=== PATIENT | female | born 1970 | race Caucasian/White ===

== ENCOUNTER 2020-02-27 09:11 | Outpatient (CLI) | payer OTHER, SELFPAY ==
--- NOTE | 2020-02-27 09:19 | CT_ITS ---
WS: [id number] CT ABDOMEN CONTRAST TECHNIQUE: Contrast enhanced CT of the abdomen with coronal and sagittal reformatted images. CLINICAL INFORMATION: HEPATOMEGALY COMPARISON: CT 4 and 2005 DLP: 828.[address] scans at [facility] use at least one of these dose optimization techniques: automat ed exposure control; mA and/or kV adjustment per patient size (includes targeted exams where dose is matched to clinical indication); or iterative reconstruction. FINDINGS: Hepatomegaly. Heterogeneously enhancing lobulated mass in the left hepatic lobe. This has enlarged si gnificantly since 2008 and today measures 12.2 x 11.4 x 12.6 cm. Mainly peripheral enhancement. Conchis l veins and splenic vein are patent. Splenic granulomas. Central low-attenuation. Cholelithiasis. Calcified granulomas left lower lobe. Lung bases are well aerated. Cholelithiasis. No rmal GE junction. Adrenal glands are normal. Peripelvic renal cysts left greater than right. Normal p ancreas. Adrenal glands are normal. Calyceal tip calculi. Normal caliber abdominal aorta. Aortic calc ification. Prominent left periaortic lymph node measuring 9 mm. Shotty periaortic lymph nodes. Proxim al ureters are normal. Fat-containing umbilical hernia. CT/CT abdomen w con* 12801 IMPRESSION: 1. Marked enlargement of the heterogeneous lobulated enhancing mass in left he patic lobe today measuring 12.2 x 11.4 x 12.6 cm. Differential considerations i nclude giant cavernous hemangioma or focal nodular hyperplasia. This can be fur ther evaluated with contrast-enhanced CT with triphasic liver protocol 2. Cholelithiasis. 3. Slightly prominent left paraaortic lymph node measuring 9 mm nonspecific bu t likely reactive. 4. Bilateral peripelvic renal cysts. No hydronephrosis. 5. Fat-containing umbilical hernia.
[2020-02-27] MEDS: iohexol 300 mg/mL 100 mL Btl IV (09:30)
== END 2020-02-27 09:12 | disposition home or self-care (01) ==
LOC: RADWPI 09:17
PROVIDERS: PCP Family Medicine; Visit Provider Family Medicine
DX: R16.0 Hepatomegaly, not elsewhere classified (principal); K42.9 Umbilical hernia without obstruction or gangrene; Q61.02 Congenital multiple renal cysts; K80.20 Calculus of gallbladder without cholecystitis without obstruction
CPT/HCPCS: 74160; Q9967

== ENCOUNTER 2020-02-28 13:51 | Outpatient (CLI) | payer OTHER, SELFPAY ==
--- NOTE | 2020-02-28 17:05 | ONC CON_ITS ---
Dr. Krishna New Patient Note Patient: Jazmin Myers Unit #: [id number]: 1970 Dicatated By: uGnnar Krishna M.D.Date of Visit: Feb 28, 2020 Onc MED New Patient/Consult Referring Physician: Dr. SIMIN GLOVER M.D. [facility] Chief Complaint: Anemia. History of Present Illness: This is a 45 year-old woman with iron deficiency anemia. I had seen her initially in October 2015. She had been seen at the [facility] the preceding month with complaints of severe fatigue/exhaustion. She gave a history of being chronically anemic. Her CBC at that time did show that she was significantly anemic with hemoglobin 7.4 g and hematocrit 25.9%. The red cell indices were hypochromic/microcytic with MCV 62 and MCH 17. The white blood cell count was normal 9600. Platelet count was mildly elevated at 461,000. The serum iron was low at 14 mcg/dL with transferrin saturation 2.7%. As she had previously been intolerant of oral iron, she was given parenteral iron replacement with 2 infusions of Injectafer, which she tolerated well. She failed to return for follow-up. Her medical history is also significant for a hospital admission for bilateral pulmonary emboli in March 2015. She was treated with apixaban. Her other medical illnesses include hypertension, degenerative arthritis, fibromyalgia, chronic headache, and anxiety/depression. She also has been followed for a cavernous hemangioma of the liver. She has a history of smoking 1/2 pack of cigarettes daily. She is seen at the request of Dr. Glover in regard to recurrent anemia. Her laboratory studies from 02/14/2020 included CBC showing hemoglobin 8.6 g with hematocrit 30.8%. The red cell indices were hypochromic/microcytic with MCV 64 and MCH 17. The white blood cell count was 10,500 and the platelet count was 380,000. The serum iron studies showed low transferrin saturation at 4% and the ferritin was low at 4 ng/mL, consistent with iron deficiency. Her comprehensive metabolic profile showed normal renal function with BUN 9 and creatinine 0.64 mg/dL. The bilirubin was normal at 0.3 mg/dL and the liver enzymes were normal. Her TSH was normal at 2.73 mIU/L. She complains that her energy is very low. She says she is sleeping all the time. She has virtually no activity. ECOG score is 3. She has not had good appetite, she has gained weight. She does not have fever. She does report having hot flashes and sweating. She is still having regular menstrual periods, and they are heavy. She has shortness of breath with activity. She does not complain of cough and she has not been having chest pain. She has nausea least every couple of days and she has been having acid reflux. She also reports having constipation. She has not been aware of any blood in the stool. Bladder function has been okay. She has pain in her hands and feet and she also has numbness/tingling, more in the hands. She has frequent headaches. She has been taking ibuprofen at least once a day. She has ongoing problems with anxiety and depression. Past Medical History: Her medical history includes anxiety/depression, cavernous hemangioma of the liver, chronic headache, degenerative arthritis, fibromyalgia, hypertension, and pulmonary emboli in 2016. Past Surgical History: Her surgical/procedural history includes section x 3 and tubal ligation. Medications: Effexor XR 1 Tablet (of 225 mg) Capsule SR 24 HR Oral daily, hydrOXYzine HCl 1 (50 mg) Tablet Oral four times a day PRN Allergies: Prazosin HCl Social History: Ms. Myers is . She is unemployed. She has a history of smoking 1/2 pack of cigarettes daily for 26 years. She does not drink alcohol. Family History: Father at age 54 with diabetes and cirrhosis. Mother at age 64 with complications related to diabetes and C. difficile colitis. A sister also has diabetes. Her maternal grandmother had breast cancer. Review Of Symptoms: Constitutional - She has very poor energy and she is sleeping all the time. She has virtually no activity. Appetite has not been good, but she has gained weight. She has not had fever. She has hot flashes and sweating. ECOG score is 3, Eyes - She reports that her vision is worse, but she did see her coal grader and she was told her eyes were okay, ENMT - No hearing loss or tinnitus. No sinus congestion/drainage. No mouth sores. No sore throat or difficulty swallowing, Hematologic/Lymphatic - No abnormal bruising or bleeding, Respiratory - She has shortness of breath with activity. No cough. No pleuritic pain or hemoptysis, Cardiovascular - No angina pain. No palpitations, Gastrointestinal - She has nausea and she has been having acid reflux. She has constipation. No blood in the stool or black stools, Genitourinary (F) - No dysuria or hematuria. No urinary frequency. No urgency or incontinence, Musculoskeletal - She has pain in her hands and feet, Integumentary - She sometimes has bumps on her skin, apparently related to anxiety, Neurologic - She has frequent headaches. She sometimes has dizziness. She has numbness, affecting her hands more than her feet. No other focal neurologic symptoms, Psychiatric - She has anxiety and depression. She sometimes has difficulty sleeping at night. Vital Signs: Performed on Feb 28, 2020 15:03: 6, 3, 42.32 (HIGH), 2.03 sq.m, 62.00 in, 98 %, 86 /min, 20 /min, 160/88 mm(hg) (HIGH), 98.0 F (LOW), and 231.4 lbs (LOW). Physical Examination: Constitutional - She does not appear acutely ill, Eyes - Sclerae nonicteric. Conjunctivae clear, ENMT - No lesions noted in the oral cavity, Hematologic/Lymphatic - No cervical, clavicular, or axillary adenopathy, Respiratory - Lungs are clear with good air movement bilaterally, Cardiovascular - Heart rhythm is regular. There is no murmur, gallop, or rub noted, Abdomen - Soft. Liver and spleen are not enlarged. There is no abdominal mass or ascites noted and there is no inguinal adenopathy, Extremities - No edema. Pedal pulses are palpable bilaterally, Integumentary - No rashes. No suspicious skin lesions noted, Neurologic - No focal neurologic deficits noted. Lab/Imaging: Contrast-enhanced CT abdomen on 02/27/2020 showed heterogeneously enhancing lobulated mass in the left hepatic lobe measuring 12.2 x 11.4 x 12.6 cm. It was noted to be predominantly peripheral enhancement. It had enlarged significantly compared to her previous CT in 2008. A prominent left periaortic lymph node measured 9 mm. The appearance was nonspecific but most likely reactive. There were bilateral peripelvic renal cysts, and there was evidence of cholelithiasis. Problem List: 1. Iron deficiency anemia. It is uncertain to what extent this may be due to blood loss (GI or menstrual) versus inadequate oral iron absorption. 2. She is being followed for suspected cavernous hemangioma of the liver. 3. She has a history of hypertension, currently not requiring medication. 4. She has a history of bilateral pulmonary emboli, currently not on anticoagulation. 5. Degenerative arthritis and fibromyalgia. 6. Anxiety/depression. Problems Addressed with this Encounter and Plan: 1. Iron deficiency anemia. It is uncertain to what extent this may be due to blood loss (GI or menstrual) versus inadequate oral iron absorption. At this point she is significantly anemic again and she is very symptomatic with it. As she has previously been intolerant of oral iron, she will be scheduled to come in for parenteral iron replacement with Injectafer, subject to verification of insurance coverage. In the meantime, I also will have her bring in a stool sample for IFOB. 2. She has acid reflux symptoms. She will be given a prescription for pantoprazole 40 mg daily. She also is advised to avoid nonsteroidal anti-inflammatory medication. 3. She is being followed for suspected cavernous hemangioma of the liver. Her CT abdomen yesterday showed marked enlargement of the enhancing left hepatic lobe mass compared to previous studies from 2005 and 2008. I will review the CT scan with the radiologist, and she will then be scheduled for further evaluation as indicated. Signed By: Gunnar Krishna M.D. <<Signature on File>>
== END 2020-02-28 13:52 | disposition home or self-care (01) ==
LOC: ONCMED 13:52
PROVIDERS: PCP Family Medicine; Visit Provider Internal Medicine Medical Oncology
DX: D50.9 Iron deficiency anemia, unspecified (principal); R93.2 Abnormal findings on diagnostic imaging of liver and biliary tract; K21.9 Gastro-esophageal reflux disease without esophagitis; I10 Essential (primary) hypertension; M19.90 Unspecified osteoarthritis, unspecified site; M79.7 Fibromyalgia; F41.8 Other specified anxiety disorders; Z86.711 Personal history of pulmonary embolism
CPT/HCPCS: 99204

== ENCOUNTER 2020-03-06 06:27 | Outpatient (CLI) | payer OTHER, SELFPAY ==
[2020-03-06] MEDS: ferric carboxy (IVPB) 750 MG in sodium chloride 0.9% (100 ml) 100 ML 460 MG IV (14:47)
== END 2020-03-06 06:28 | disposition home or self-care (01) ==
LOC: ONCMED 06:28
PROVIDERS: PCP Family Medicine; Visit Provider Internal Medicine Medical Oncology
DX: D50.8 Other iron deficiency anemias (principal)
CPT/HCPCS: 96365; J1439

== ENCOUNTER 2020-03-13 06:40 | Outpatient (CLI) | payer OTHER, SELFPAY ==
[2020-03-13] MEDS: ferric carboxy (IVPB) 750 MG in sodium chloride 0.9% (100 ml) 100 ML 345 MG IV (14:40)
== END 2020-03-13 06:41 | disposition home or self-care (01) ==
LOC: ONCMED 06:42
PROVIDERS: PCP Family Medicine; Visit Provider Internal Medicine Medical Oncology
DX: D50.9 Iron deficiency anemia, unspecified (principal)
CPT/HCPCS: 96365; J1439

== ENCOUNTER 2020-04-08 08:48 | Outpatient (CLI) | payer OTHER, SELFPAY ==
[2020-04-08 10:10] LABS: Alanine Aminotransferase 17 U/L (0-33); Albumin Level 3.7 g/dL (3.5-5.2); Alkaline Phosphatase 62 IU/L (35-105); Anion Gap 12.8 (5-19); Aspartate Amino Transferase 14 U/L (0-32); Blood Urea Nitrogen 10 mg/dL (6-20); Calcium 8.5 mg/dL (8.5-10.5); Carbon Dioxide 25 mmol/L (22-29); Chloride 102 mmol/L (98-107); Ferritin 124 ng/mL (15-150); Globulin 2.9 g/dL (1.3-4.6); Glomerular Filtration Rate 105.8 mL/min (90-130); Glucose 104 mg/dL (65-115); Iron 46 ug/dL (37-145); Osmolality Calculated 281 mOsm/kg (285-295); Percent Saturation 16.7 % (20-50); Potassium 3.8 mmol/L (3.5-5.1); Sodium 136 mmol/L (136-145); Total Bilirubin 0.2 mg/dL (0.15-1.2); Total Iron Binding Capacity 275 mcg/dl; Total Protein 6.6 g/dL (6.6-8.7); Unsaturated Iron Binding 229 ug/dL (112-347)
[2020-04-08 10:51] LABS: Basophils # 0.1 10^3/uL (0.0-0.1); Basophils % 1.2 %; Eosinophils # 0.4 10^3/uL (0.0-0.8); Eosinophils % 4.6 %; Hematocrit 37.2 % (37.0-47.0); Hemoglobin 11.7 g/dL (11.5-15.3); Lymphocytes % 36.5 %; Mean Corpuscular HGB Conc 31.5 g/dL (30.0-36.0); Mean Corpuscular Hemoglobin 25.9 pg (28.0-34.0); Mean Corpuscular Volume 82.3 fL (81-99); Mean Platelet Volume 9.5 fL (7.4-10.4); Monocytes # 0.4 10^3/uL (0.2-0.9); Monocytes % 5.2 %; Neutrophils # 4.21 10^3/uL (1.8-7.7); Nucleated Red Blood Cells % 0 %; Platelet Count 295 10^3/cmm (130-400); Red Blood Count 4.52 10^6/uL (4.1-5.3); White Blood Count 8.1 10^3/uL (4.0-10.0)
[2020-04-08 11:03] LABS: Folate Level 4.7 ng/mL (4.8-37.3)
--- NOTE | 2020-04-09 06:39 | ONC FU_ITS ---
Dr. Krishna Patient Follow-Up Note Patient: Jazmin Myers Unit #: [id number]: 1970 Dicatated By: Gunnar Krishna M.D.Date of Visit:Apr 08, 2020 Onc Med Follow-up/Prog Note Chief Complaint: Anemia. History of Present Illness: This is a 49 year-old woman with iron deficiency anemia. I had seen her initially in October 2015. She had been seen at the [facility] the preceding month with complaints of severe fatigue/exhaustion. She gave a history of being chronically anemic. Her CBC at that time did show that she was significantly anemic with hemoglobin 7.4 g and hematocrit 25.9%. The red cell indices were hypochromic/microcytic with MCV 62 and MCH 17. The white blood cell count was normal 9600. Platelet count was mildly elevated at 461,000. The serum iron was low at 14 mcg/dL with transferrin saturation 2.7%. As she had previously been intolerant of oral iron, she was given parenteral iron replacement with 2 infusions of Injectafer, which she tolerated well. She failed to return for follow-up. Her medical history is also significant for a hospital admission for bilateral pulmonary emboli in March 2015. She was treated with apixaban. Her other medical illnesses include hypertension, degenerative arthritis, fibromyalgia, chronic headache, and anxiety/depression. She also has been followed for a cavernous hemangioma of the liver. She has a history of smoking 1/2 pack of cigarettes daily. I had seen her again in February 2020 in regard to recurrent anemia. Her laboratory studies from 02/14/2020 included CBC showing hemoglobin 8.6 g with hematocrit 30.8%. The red cell indices were hypochromic/microcytic with MCV 64 and MCH 17. The white blood cell count was 10,500 and the platelet count was 380,000. The serum iron studies showed low transferrin saturation at 4% and the ferritin was low at 4 ng/mL, consistent with iron deficiency. Her comprehensive metabolic profile showed normal renal function with BUN 9 and creatinine 0.64 mg/dL. The bilirubin was normal at 0.3 mg/dL and the liver enzymes were normal. Her TSH was normal at 2.73 mIU/L. As she had a history of intolerance to oral iron she was given parenteral iron replacement with 2 infusions of Injectafer, which she tolerated well. She is seen now for a follow-up visit. She says her energy has improved following the iron infusions, but she still feels worn out. Her activity remains very limited, but much of that is due to generalized pain. She says she is sore everywhere, and lately the right shoulder and both knees. She mostly sits in bed. Her appetite is not very good. Her weight is down a few pounds. She does not have fever. She sometimes has hot flashes. She had sore throat last week. She says it feels like she cannot get enough oxygen. She does not complain of cough. She sometimes has chest pain, mainly sharp pain in her right chest. She reports having nausea pretty often and she also has heartburn. She has chronic constipation. She has been having pain in the lower abdomen on either the right side or the left side. Bladder function remains adequate, though she does have some stress incontinence. She has daily headaches. She also complains of dizziness. She has numbness in her left arm. She reports having depression despite taking 300 mg of venlafaxine daily. She also complains that she is getting forgetful. Medications: Effexor XR 1 Tablet (of 225 mg) Capsule SR 24 HR Oral daily, hydrOXYzine HCl 1 (50 mg) Tablet Oral four times a day PRN Allergies: Prazosin HCl Vital Signs: Performed on Apr 08, 2020 10:41 Height - 62.00 in Weight - 227.2 lbs (LOW) BSA - 2.02 sq.m BMI - 41.56 (HIGH) Temperature - 98.8 F Pulse - 86 /min Respiration - 20 /min BP - 138/84 mm(hg) O2 Sat - 98 % Pain - 0 Fatigue - 10 Physical Examination: Constitutional - She looks pretty good generally, Eyes - Sclerae nonicteric. Conjunctivae clear, ENMT - No lesions noted in the oral cavity, Hematologic/Lymphatic - No cervical, clavicular, or axillary adenopathy, Respiratory - Lungs are clear with good air movement bilaterally, Cardiovascular - Heart rhythm is regular. There is no murmur, gallop, or rub noted, Abdomen - Mildly distended. Liver and spleen are not enlarged. There is no abdominal mass or ascites noted and there is no inguinal adenopathy, Extremities - No edema, Neurologic - No focal neurologic deficits noted. Lab/Imaging: Test performed on Apr 08, 2020 09:10 Ferritin 124 ng/mL Folate, Serum 4.7 ng/mL Iron 46 mcg/dL Sodium 136 mmol/L Iron Binding Capacity (TIBC) 275 mcg/dl Potassium 3.8 mmol/L % Iron Saturation 16.7 % Chloride 102 mmol/L CO2 25 mmol/L UIBC 229 mcg/dL Anion Gap 12.8 BUN 10 mg/dL Creatinine 0.6 mg/dL Cr Clearance (Est) 182.50 mL/min eGFR 105.8 mL/min Glucose 104 mg/dL Osmolality - Calculated 281 mOsm/kg Calcium 8.5 mg/dL Protein, Total 6.6 g/dL Albumin 3.7 g/dL Globulin 2.9 g/dL Bilirubin, Total 0.2 mg/dL ALT (SGPT) 17 U/L AST (SGOT) 14 U/L Alkaline Phosphatase 62 IU/L WBC 8.1 10 3/uL RBC 4.52 10 6/uL HGB 11.7 g/dL HCT 37.2 % MCV 82.3 fL MCH 25.9 pg MCHC 31.5 g/dL Platelet Count 295 10 3/cmm MPV 9.5 fL Neutrophils 4.21 10 3/uL Lymphocytes 3.0 10 3/uL Monocytes 0.4 10 3/uL Eosinophils 0.4 10 3/uL Basophils 0.1 10 3/uL Neutrophil % 52.0 % Lymphocyte % 36.5 % Monocyte % 5.2 % Eosinophil % 4.6 % Basophils % 1.2 % NRBC % 0 % Problem List: 1. Iron deficiency anemia. It is uncertain to what extent this may be due to blood loss (GI or menstrual) versus inadequate oral iron absorption. 2. She is being followed for suspected cavernous hemangioma of the liver. 3. She has a history of hypertension, currently not requiring medication. 4. She has a history of bilateral pulmonary emboli, currently not on anticoagulation. 5. Degenerative arthritis and fibromyalgia. 6. Anxiety/depression. Problems Addressed with this Encounter and Plan: 1. Iron deficiency anemia. It is uncertain to what extent this may be due to blood loss (GI or menstrual) versus inadequate oral iron absorption. Due to history of intolerance to oral iron, she was given parenteral iron replacement with 2 infusions of Injectafer, which she tolerated well. She has had a very good objective response, though she remains slightly anemic and her transferrin saturation is still low at 16%. As such, she will be given 1 additional infusion of Injectafer. She will be scheduled for a follow-up in 3 months. In the meantime, she is reminded to bring in a stool sample for Hemoccult testing. 2. She has acid reflux symptoms. She has had some improvement with pantoprazole, though she continues to complain of nausea and heartburn. She also has chronic constipation. 3. She has been followed for suspected cavernous hemangioma of the liver. I reviewed the February abdominal CT scan with the radiologist, and the lesion has enlarged significantly compared to the 2008 study, now occupying the majority of the lower half of the liver. As such, I will try and arrange for her to be seen by a hepatobiliary surgeon. Signed By: Gunnar Krishna M.D. <<Signature on File>>
[2020-04-09 10:50] LABS: Vitamin B12 289 pg/mL (232-1245)
== END 2020-04-08 08:49 | disposition home or self-care (01) ==
PROVIDERS: PCP Family Medicine; Visit Provider Internal Medicine Medical Oncology
DX: D50.9 Iron deficiency anemia, unspecified (principal); K21.9 Gastro-esophageal reflux disease without esophagitis; K59.09 Other constipation; K76.9 Liver disease, unspecified
CPT/HCPCS: 36415; 80053; 82607; 82728; 82746; 83540; 83550; 85025; 99214

== ENCOUNTER 2020-04-23 06:28 | Outpatient (CLI) | payer OTHER, SELFPAY ==
[2020-04-23] MEDS: ferric carboxy (IVPB) 750 MG in sodium chloride 0.9% (100 ml) 100 ML 460 MG IV (14:53)
== END 2020-04-23 06:29 | disposition home or self-care (01) ==
LOC: ONCMED 06:28
PROVIDERS: PCP Family Medicine; Visit Provider Internal Medicine Medical Oncology
DX: D50.9 Iron deficiency anemia, unspecified (principal)
CPT/HCPCS: 80307; 96365; J1439

== ENCOUNTER 2020-06-09 11:35 | Outpatient (CLI) | payer OTHER, SELFPAY ==
[2020-06-09 12:19] LABS: Basophils # 0.1 10^3/uL (0.0-0.1); Eosinophils # 0.3 10^3/uL (0.0-0.8); Eosinophils % 2.8 %; Hematocrit 40.5 % (37.0-47.0); Hemoglobin 13.2 g/dL (11.5-15.3); Lymphocytes # 3.3 10^3/uL (0.8-4.8); Lymphocytes % 32.4 %; Mean Corpuscular HGB Conc 32.6 g/dL (30.0-36.0); Mean Corpuscular Hemoglobin 30.3 pg (28.0-34.0); Mean Corpuscular Volume 92.9 fL (81-99); Monocytes # 0.5 10^3/uL (0.2-0.9); Monocytes % 5.3 %; Neutrophils # 5.89 10^3/uL (1.8-7.7); Neutrophils % 58.2 %; Nucleated Red Blood Cells % 0 %; Platelet Count 379 10^3/cmm (130-400); Red Blood Count 4.36 10^6/uL (4.1-5.3); Red Cell Distribution Width 14.4 % (12.1-15.1); White Blood Count 10.1 10^3/uL (4.0-10.0)
[2020-06-09 12:30] LABS: Ferritin 39 ng/mL (15-150); Iron 62 ug/dL (37-145); Total Iron Binding Capacity 295 mcg/dl; Unsaturated Iron Binding 233 ug/dL (112-347)
--- NOTE | 2020-06-22 23:46 | ONC FU_ITS ---
[facility] Patient Note Patient: Jazmin Myers Unit #: [id number]: 1970 Dictated By: James ArredondoDate of Visit: June 09, 2020 Onc MED Follow-Up/Prog Note Chief Complaint: Anemia. History of Present Illness: Mrs Myers is a 49 year-old woman with iron deficiency anemia. Dr Krishna had seen her initially in October 2015. She had been seen at the [facility] the preceding month with complaints of severe fatigue/exhaustion. She gave a history of being chronically anemic. Her CBC at that time did show that she was significantly anemic with hemoglobin 7.4 g and hematocrit 25.9%. The red cell indices were hypochromic/microcytic with MCV 62 and MCH 17. The white blood cell count was normal 9600. Platelet count was mildly elevated at 461,000. The serum iron was low at 14 mcg/dL with transferrin saturation 2.7%. As she had previously been intolerant of oral iron, she was given parenteral iron replacement with 2 infusions of Injectafer, which she tolerated well. She failed to return for follow-up. Her medical history is also significant for a hospital admission for bilateral pulmonary emboli in March 2015. She was treated with apixaban. Her other medical illnesses include hypertension, degenerative arthritis, fibromyalgia, chronic headache, and anxiety/depression. She also has been followed for a cavernous hemangioma of the liver. She has a history of smoking 1/[address] Krishna had seen her again in February 2020 in regard to recurrent anemia. Her laboratory studies from 02/14/2020 included CBC showing hemoglobin 8.6 g with hematocrit 30.8%. The red cell indices were hypochromic/microcytic with MCV 64 and MCH 17. The white blood cell count was 10,500 and the platelet count was 380,000. The serum iron studies showed low transferrin saturation at 4% and the ferritin was low at 4 ng/mL, consistent with iron deficiency. Her comprehensive metabolic profile showed normal renal function with BUN 9 and creatinine 0.64 mg/dL. The bilirubin was normal at 0.3 mg/dL and the liver enzymes were normal. Her TSH was normal at 2.73 mIU/L. As she had a history of intolerance to oral iron, she was given parenteral iron replacement with 2 infusions of Injectafer, which she tolerated well. Mrs sulma Myers is here today for followup. Her last dose of Injectafer was April 23, 2020. Her hemoglobin at that time was 11.7 but her iron saturation on April 08, 2020 was 16.7% with a ferritin of 124 and iron level of 46. She states overall she feels that she is doing pretty good. She reports that she is scheduled to see Dr. Davenport in [place] on June 26, 2020 for the cavernous hemangioma of the liver. She denies any new concerns. She denies any new pain. She is had no fever or chills. She states her energy is still about the same. Maybe a little better than her last visit. She states her appetite is fair. She is able to do her ADLs without assistance. She denies any new shortness of breath orthopnea. She denies any chest pain or palpitations. She denies any hemoptysis. She states she has not had any new abdominal pain. She denies diarrhea or constipation. She has chronic joint pain due to the degenerative arthritis and fibromyalgia but states is no worse than normal. Her anxiety and depression are about the same as her normal . Her ECOG is 2. Past Medical History: Anxiety/depression Cavernous hemangioma of the liver Chronic headache Degenerative arthritis Fibromyalgia Hypertension Pulmonary emboli in 2016 Past Surgical History: section x 3 Tubal ligation Allergies: Prazosin HCl Medications: Effexor XR 1 Tablet (of 225 mg) Capsule SR 24 HR Oral daily hydrOXYzine HCl 1 (50 mg) Tablet Oral four times a day PRN Family History: Ms. Myers's mother at age 64: heart disease, and diabetes. Ms. Myers's father at age 54: cirrhosis, and diabetes. Ms. Myers has 1 brother who is alive: hypertension, and thyroid disorder. She has 1 sister who is alive: diabetes, and fibromyalgia. Father at age 54 with diabetes and cirrhosis. Mother at age 64 with complications related to diabetes and C. difficile colitis. A sister also has diabetes. Her maternal grandmother had breast cancer. Social History: Ms. Myers is and she is unemployed. She is a daily smoker who has smoked 0.5 packs/day for 27 years. She has no history of drinking. She has a history of smoking 1/2 pack of cigarettes daily for 26 years. She does not drink alcohol. Review Of Symptoms: <See Above> Vital Signs: Performed on June 09, 2020 13:24 Height - 62.00 in Weight - 230.8 lbs (HIGH) BSA - 2.03 sq.m BMI - 42.21 (HIGH) Temperature - 96.5 F (LOW) Pulse - 102 /min (HIGH) Respiration - 17 /min BP - 138/85 mm(hg) O2 Sat - 95 % (LOW) Pain - 0,2 - Ambulatory/capable of all self-care, unable to perform any work activities. Up and about more than 50% of waking hours. (ECOG) Physical Examination: Constitutional Alert, oriented, no acute distress. Skin pink, warm and dry. Head Normocephalic; atraumatic. Eyes Conjunctivae and sclerae are clear and without icterus. Pupils are reactive and equal. Respiratory Lungs are clear to auscultation without rhonchi or wheezing. Cardiovascular Regular rate and rhythm of heart without murmurs,clicks, gallops or rubs. Breasts Abdomen Non-tender, non-distended, no masses or ascites. Good bowel sounds noted in all quads. No guarding or rebound tenderness. No pulsatile masses. Back/Spine Non-tender to palpation. Extremities No visible deformities, no cyanosis, clubbing or edema. Musculoskeletal No tenderness or swelling, normal range of motion without obvious weakness. Integumentary No rashes or lesions. Neurologic No sensory or motor deficits, normal cerebellar function, normal gait. Psychiatric Alert and oriented times three. Coherent speech. Verbalizes understanding of our discussions today. Laboratory:Test performed on June 09, 2020 11:42 Ferritin 39 ng/mL Iron 62 mcg/dL Iron Binding Capacity (TIBC) 295 mcg/dl % Iron Saturation 21.0 % UIBC 233 mcg/dL WBC 10.1 10 3/uL RBC 4.36 10 6/uL HGB 13.2 g/dL HCT 40.5 % MCV 92.9 fL MCH 30.3 pg MCHC 32.6 g/dL RDW 14.4 % Platelet Count 379 10 3/cmm MPV 9.0 fL Neutrophils 5.89 10 3/uL Lymphocytes 3.3 10 3/uL Monocytes 0.5 10 3/uL Eosinophils 0.3 10 3/uL Basophils 0.1 10 3/uL Neutrophil % 58.2 % Lymphocyte % 32.4 % Monocyte % 5.3 % Eosinophil % 2.8 % Basophils % 1.0 % NRBC % 0 % Test performed on Apr 08, 2020 09:10 Folate, Serum 4.7 ng/mL Sodium 136 mmol/L Vitamin B12 289 pg/mL Potassium 3.8 mmol/L Chloride 102 mmol/L CO2 25 mmol/L Anion Gap 12.8 BUN 10 mg/dL Creatinine 0.6 mg/dL Cr Clearance (Est) 182.50 mL/min eGFR 105.8 mL/min Glucose 104 mg/dL Osmolality - Calculated 281 mOsm/kg Calcium 8.5 mg/dL Protein, Total 6.6 g/dL Albumin 3.7 g/dL Globulin 2.9 g/dL Bilirubin, Total 0.2 mg/dL ALT (SGPT) 17 U/L AST (SGOT) 14 U/L Alkaline Phosphatase 62 IU/L Impression: 1. Iron deficiency anemia. It is uncertain to what extent this may be due to blood loss (GI or menstrual) versus inadequate oral iron absorption. 2. She is being followed for suspected cavernous hemangioma of the liver. 3. She has a history of hypertension, currently not requiring medication. 4. She has a history of bilateral pulmonary emboli, currently not on anticoagulation. 5. Degenerative arthritis and fibromyalgia. 6. Anxiety/depression. Plan/Problems Addressed at this Visit: 1. Iron deficiency anemia. It is uncertain to what extent this may be due to blood loss (GI or menstrual) versus inadequate oral iron absorption. Due to history of intolerance to oral iron, she was given parenteral iron replacement with 2 infusions of Injectafer, which she tolerated well. Her last dose of Injectafer was on 04/23/2020 at which times she received just one dose. 2. She has acid reflux symptoms. GERD symptoms A. Continue pantoprazole she may increase to twice daily. B. She may supplement with Tums/Rolaids as needed. Her calcium level today is 8.5. 3. Chronic constipation A. She will continue with current stool regimen of stool softeners and laxative as needed. This is currently working well for her. 4. Suspected cavernous hemangioma of the liver-Per February [address] CT. A. She has been referred to Dr. Davenport in [place] per Dr. Krishna. B. Mrs. Myers reports that she has an appointment with Dr. Davenport on June 26, 2020. 5. Mrs. Myers was identified as a fall risk per her fall risk questionnaire today. A. She will referred to physical therapy for evaluation of fall risk. 6. Chronic anxiety depression. A. Currently controlled on current medications???Effexor XR 225 mg daily. 7. Follow-up plan A. We will plan to see her back in 3 months with CBC CMP and iron studies to include ferritin and TIBC. B. Mrs. Myers was encouraged to call us in interim if questions or problems arise. C. We will be glad to see her back after her appoint with Dr. Davenport as warranted. D. It is noted that her last mammogram (found in [facility] ) was a bilateral mammogram on September 01, 2016 which was reported as benign. E. I do not find any records of stool for occult blood cards as requested per Dr. Krishna at his last visit. F. She did have abdominal CT with contrast on February 27, 2020 which reported the hepatomegaly and cholelithiasis and a fat-containing umbilical hernia. I do not find any record of a colonoscopy with in [facility]???old or new. Signed By: James Arredondo-, [facility] Gunnar Krishna MD <<Signature on File>>
== END 2020-06-09 11:36 | disposition home or self-care (01) ==
PROVIDERS: PCP Family Medicine; Visit Provider Nurse Practitioner
DX: D50.9 Iron deficiency anemia, unspecified (principal); F41.9 Anxiety disorder, unspecified; F32.9 Major depressive disorder, single episode, unspecified; G43.919 Migraine, unspecified, intractable, without status migrainosus; M79.7 Fibromyalgia; I10 Essential (primary) hypertension; Z79.899 Other long term (current) drug therapy
CPT/HCPCS: 36415; 82728; 83540; 83550; 85025; 99214

== ENCOUNTER 2020-12-04 12:56 | Outpatient (CLI) | payer MEDICAID, SELFPAY ==
[2020-12-04 13:32] LABS: Basophils # 0.1 10^3/uL (0.0-0.1); Basophils % 0.9 %; Eosinophils # 0.3 10^3/uL (0.0-0.8); Eosinophils % 2.1 %; Hematocrit 36.1 % (37.0-47.0); Hemoglobin 10.7 g/dL (11.5-15.3); Lymphocytes # 2.9 10^3/uL (0.8-4.8); Lymphocytes % 24.1 %; Mean Corpuscular HGB Conc 29.6 g/dL (30.0-36.0); Mean Corpuscular Hemoglobin 22.4 pg (28.0-34.0); Mean Corpuscular Volume 75.7 fl (81-99); Mean Platelet Volume 9.7 fL (7.4-10.4); Monocytes # 0.7 10^3/uL (0.2-0.9); Monocytes % 5.7 %; Neutrophils % 66.7 %; Nucleated Red Blood Cells % 0 %; Platelet Count 293 10^3/cmm (130-400); Red Blood Count 4.77 10^6/uL (4.1-5.3); Red Cell Distribution Width 19.4 % (12.1-15.1); White Blood Count 11.8 10^3/uL (4.0-10.0)
[2020-12-04 13:43] LABS: Alanine Aminotransferase 18 U/L (0-33); Albumin Level 3.6 g/dL (3.5-5.2); Alkaline Phosphatase 66 IU/L (35-105); Anion Gap 13.8 (5-19); Aspartate Amino Transferase 15 U/L (0-32); Blood Urea Nitrogen 8 mg/dL (6-20); Calcium 8.3 mg/dL (8.5-10.5); Carbon Dioxide 24 mmol/L (22-29); Chloride 99 mmol/L (98-107); Ferritin 5 ng/mL (15-150); Globulin 2.9 g/dL (1.3-4.6); Glomerular Filtration Rate 130.1 mL/min (90-130); Glucose 127 mg/dL (65-115); Iron 23 ug/dL (37-145); Osmolality Calculated 276 mOsm/kg (285-295); Percent Saturation 5.4 % (20-50); Potassium 3.8 mmol/L (3.5-5.1); Sodium 133 mmol/L (136-145); Total Bilirubin 0.2 mg/dL (0.15-1.2); Total Iron Binding Capacity 422 mcg/dl; Total Protein 6.5 g/dL (6.6-8.7); Unsaturated Iron Binding 399 ug/dL (112-347)
[2020-12-04] MEDS: ferric carboxy (IVPB) 750 MG in sodium chloride 0.9% (100 ml) 100 ML 460 MG IV (15:12)
--- NOTE | 2020-12-05 10:13 | ONC FU_ITS ---
Dr. Krishna Patient Follow-Up Note Patient: Jazmin Myers Unit #: [id number]: 1970 Dicatated By: Gunnar Krishna M.D.Date of Visit:Dec 04, 2020 Onc Med Follow-up/Prog Note Chief Complaint: Anemia. History of Present Illness: This is a 50 year-old woman with iron deficiency anemia. I had seen her initially in October 2015. She had been seen at the [facility] the preceding month with complaints of severe fatigue/exhaustion. She gave a history of being chronically anemic. Her CBC at that time did show that she was significantly anemic with hemoglobin 7.4 g and hematocrit 25.9%. The red cell indices were hypochromic/microcytic with MCV 62 and MCH 17. The white blood cell count was normal 9600. Platelet count was mildly elevated at 461,000. The serum iron was low at 14 mcg/dL with transferrin saturation 2.7%. As she had previously been intolerant of oral iron, she was given parenteral iron replacement with 2 infusions of Injectafer. She failed to return for follow-up. I had seen her again in February 2020 with recurrence of her anemia. Her laboratory studies from 02/14/2020 included CBC showing hemoglobin 8.6 g with hematocrit 30.8%. The red cell indices were hypochromic/microcytic with MCV 64 and MCH 17. The white blood cell count was 10,500 and the platelet count was 380,000. The serum iron studies showed low transferrin saturation at 4% and the ferritin was low at 4 ng/mL, consistent with iron deficiency. As she had a history of intolerance to oral iron she was given parenteral iron replacement with 2 infusions of Injectafer, which she tolerated well. At her follow-up visit in April 2020 she was still slightly anemic with transferrin saturation low at 16.7%, and she was given 1 additional infusion of Injectafer. Her repeat CBC on 06/09/2020 showed hemoglobin normal at 13.2 g. Her medical history is also significant for a hospital admission for bilateral pulmonary emboli in March 2015. She was treated with apixaban. Her other medical illnesses include hypertension, degenerative arthritis, fibromyalgia, chronic headache, and anxiety/depression. She also has been followed for a cavernous hemangioma of the liver. She has a history of smoking 1/2 pack of cigarettes daily. INTERIM HISTORY: Her repeat CT abdomen/pelvis in February 2020 had shown marked enlargement of the lobulated enhancing mass in left hepatic lobe, at that point measuring 12.2 x 11.4 x 12.6 cm. With that finding, she was referred to Dr. Davenport in [place] for further management of the cavernous hemangioma. There was delay in getting that scheduled due to insurance issues. She eventually was seen by him on 07/09/2020. She was recommended to have a liver protocol CT at a 3-month interval. She is seen for a follow-up visit. She says she is doing all right, but she does tire very easily and she has limited activity. Her ECOG score is 1. She has good appetite. She has not had fever. She does have hot flashes/sweating. She has not had sore mouth or throat and she does not complain of cough. She is short of breath a lot, sometimes even at rest. She is starting CPAP. She periodically has sharp pain in her upper mid chest area. Occurs several times a week. She gets nauseated very easily. Her acid reflux symptoms are adequately managed with Protonix. She has had a change in her bowel habit, now with 2 or 3 bowel movements per day where she previously had chronic constipation. She has some urgency with urination. She has a lot of back pain and she also complains that her feet hurt a lot. She occasionally has pain in her right hip and in her left shoulder. She frequently has headache. She has some dysequilibrium when she first gets up, and she tends to stumble. She has numbness in her left arm all the time. Medications: Abilify 2.5 mg (of 5 mg) Tablet Oral daily, Effexor XR 1 Tablet (of 300 mg) Capsule SR 24 HR Oral daily, hydrOXYzine HCl 1 (50 mg) Tablet Oral four times a day PRN, Pantoprazole Sodium 1 Tablet (of 40 mg) Tablet, enteric coated Oral daily, Xanax 1 Tablet (of 0.5 mg) Oral t.i.d. Allergies: Prazosin HCl Vital Signs: Performed on Dec 04, 2020 14:22 Height - 62.00 in Weight - 250 lbs (HIGH) BSA - 2.10 sq.m BMI - 45.73 (HIGH) Temperature - 96.8 F (LOW) Pulse - 102 /min (HIGH) Respiration - 18 /min BP - 162/58 mm(hg) (HIGH) O2 Sat - 95 % (LOW) Pain - 4 Fatigue - 6 Physical Examination: Constitutional - She looks pretty good generally, Eyes - Sclerae nonicteric. Conjunctivae clear, ENMT - No lesions noted in the oral cavity, Hematologic/Lymphatic - No cervical, clavicular, or axillary adenopathy, Respiratory - Lungs are clear with good air movement bilaterally, Cardiovascular - Heart rhythm is regular. There is no murmur, gallop, or rub noted, Abdomen - Mildly distended. Liver is not overtly enlarged. Spleen is not palpable. There is no abdominal mass or ascites noted and there is no inguinal adenopathy, Extremities - No edema, Neurologic - No focal neurologic deficits noted. Lab/Imaging: Test performed on Dec 04, 2020 13:10 Ferritin 5 ng/mL Iron 23 mcg/dL Sodium 133 mmol/L Iron Binding Capacity (TIBC) 422 mcg/dl Potassium 3.8 mmol/L % Iron Saturation 5.4 % Chloride 99 mmol/L CO2 24 mmol/L UIBC 399 mcg/dL Anion Gap 13.8 BUN 8 mg/dL Creatinine 0.5 mg/dL Cr Clearance (Est) 238.30 mL/min eGFR 130.1 mL/min Glucose 127 mg/dL Osmolality - Calculated 276 mOsm/kg Calcium 8.3 mg/dL Protein, Total 6.5 g/dL Albumin 3.6 g/dL Globulin 2.9 g/dL Bilirubin, Total 0.2 mg/dL ALT (SGPT) 18 U/L AST (SGOT) 15 U/L Alkaline Phosphatase 66 IU/L WBC 11.8 10 3/uL RBC 4.77 10 6/uL HGB 10.7 g/dL HCT 36.1 % MCV 75.7 fl MCH 22.4 pg MCHC 29.6 g/dL RDW 19.4 % Platelet Count 293 10 3/cmm MPV 9.7 fL Neutrophils 7.90 10 3/uL Lymphocytes 2.9 10 3/uL Monocytes 0.7 10 3/uL Eosinophils 0.3 10 3/uL Basophils 0.1 10 3/uL Neutrophil % 66.7 % Lymphocyte % 24.1 % Monocyte % 5.7 % Eosinophil % 2.1 % Basophils % 0.9 % NRBC % 0 % Problem List: 1. Iron deficiency anemia. 2. She is being followed for suspected cavernous hemangioma of the liver. 3. She has a history of hypertension, currently not requiring medication. 4. She has a history of bilateral pulmonary emboli, currently not on anticoagulation. 5. GERD. 6. Degenerative arthritis and fibromyalgia. 7. Anxiety/depression. Problems Addressed with this Encounter and Plan: 1. Patient with recurrent iron deficiency anemia. It is uncertain to what extent this may be due to blood loss (GI or menstrual) versus inadequate oral iron absorption. Due to history of intolerance to oral iron, she was given parenteral iron replacement with 2 infusions of Injectafer, which she tolerated well. She had a good objective response, but she did require 1 additional infusion of Injectafer in April. Her CBC on 06/09/2020 showed normal hemoglobin at 13.2 g. She now has recurrence of anemia, hemoglobin decreased to 10.7 g with transferrin saturation 5.4% and ferritin 5 ng/mL, consistent with iron deficiency. She will be given additional parenteral iron replacement with 2 infusions of Injectafer. She is to bring in a stool sample for IFOB. She will have further GI evaluation as indicated. 2. She has complaints of shortness of breath and chest pain, and she has a history of bilateral pulmonary emboli. As she is not on any anticoagulation, I am going to schedule her for CT pulmonary angiogram. 3. She has been followed for suspected cavernous hemangioma of the liver. On her CT scan in February 2020 the lesion has enlarged significantly compared to the 2008 study. With that finding, she was referred to Dr. Davenport in [place] for further management. She was seen there in July and she was recommended to have a 3-month interval follow-up liver protocol CT. I will arrange for that to be done here, as her insurance will not cover it at [facility]. Signed By: Gunnar Krishna M.D. <<Signature on File>>
== END 2020-12-04 12:57 | disposition home or self-care (01) ==
PROVIDERS: PCP Family Medicine; Visit Provider Internal Medicine Medical Oncology
DX: D50.9 Iron deficiency anemia, unspecified (principal); K21.9 Gastro-esophageal reflux disease without esophagitis; Z86.711 Personal history of pulmonary embolism; F17.210 Nicotine dependence, cigarettes, uncomplicated
CPT/HCPCS: 80053; 82728; 83540; 83550; 85025; 96365; 99214; J1439

== ENCOUNTER 2020-12-05 11:19 | Outpatient (CLI) | payer MEDICAID, SELFPAY | END 2020-12-05 11:20 | disposition home or self-care (01) | PROVIDERS: PCP Family Medicine; Visit Provider Internal Medicine Medical Oncology | DX: D50.9 Iron deficiency anemia, unspecified (principal) | CPT/HCPCS: 82274 ==

== ENCOUNTER 2020-12-11 06:50 | Outpatient (CLI) | payer MEDICAID, SELFPAY ==
[2020-12-11] MEDS: ferric carboxy (IVPB) 750 MG in sodium chloride 0.9% (100 ml) 100 ML 460 MG IV (14:45)
== END 2020-12-11 06:51 | disposition home or self-care (01) ==
PROVIDERS: PCP Family Medicine; Visit Provider Internal Medicine Medical Oncology
DX: D50.9 Iron deficiency anemia, unspecified (principal)
CPT/HCPCS: 96365; J1439

== ENCOUNTER 2021-01-08 08:32 | Outpatient (CLI) | payer MEDICAID, SELFPAY ==
--- NOTE | 2021-01-08 | CT_ITS ---
WS: [id number] CT ABDOMEN WITH CONTRAST HISTORY: CAVERNOUS HEMANGIOMA Contiguous single phase 5 mm axial imaging performed to the abdomen. Oral contrast has not been provi ded. Coronal and sagittal reformats are submitted. All CT scans at [facility] use at least on e of these dose optimization techniques: automated exposure control; mA and/or kV adjustment per jeff ent size (includes targeted exams where dose is matched to clinical indication); or iterative reconst ruction. CONTRAST: Omnipaque 300; 95 mL IV. DLP: 1604.76 mGycm COMPARISON: 02/27/2020, 06/04/2008 and 05/31/2005. Lower thorax: There is a new 4 mm nodule at the RIGHT lung base. Benign granuloma at the LEFT lung ba se. Heart size is normal. No hernia. Liver: Low-attenuation throughout the liver with hepatic steatosis. Liver is also slightly enlarged. There is a very large heterogeneous and peripherally enhancing mass predominantly involving the LEFT lobe of the liver. This mass extends over length of 12.5 cm x 13.2 x 10.4 cm. Peripheral enhancement with a few areas of central low attenuation which may be necrosis. This mass has slowly increased in size since 2005. There is mild mass effect upon the gallbladder and the proximal duodenum. No acute h emorrhage. Gallbladder: Mildly displaced gallbladder by the large hepatic mass. Gallbladder does contain stones. No acute cholecystitis. Pancreas: Normal. Spleen: Normal size with granulomata. Adrenals: Normal. Right kidney: Normal. Left kidney: 8 mm calcification which is nonobstructing in the upper pole. Parapelvic cysts. No obstr uction or solid mass. Aorta: Very mild atherosclerosis aorta. GI tract: As visualized no abnormality. No adenopathy or free fluid. Abdominal wall: No hernia. Visualized osseous structures: Unremarkable. CT/CT abdomen w con* [id number] IMPRESSION: 1. Large peripherally enhancing mass centered in the LEFT lobe of the liver wi th mass effect upon the gallbladder and adjacent duodenum. Mass measures 12.5 x 13.2 x 10.4 cm and has slowly increased in size since 2005. This is most likel y a giant hemangioma. Due to its large size there is a increased risk for spont aneous hemorrhage. 2. Cholelithiasis without acute cholecystitis. 3. New 4 mm nodule at the RIGHT lung base. Recommend follow-up chest CT in 12 months.
[2021-01-08 09:28] LABS: Basophils # 0.1 10^3/uL (0.0-0.1); Basophils % 0.9 %; Eosinophils # 0.2 10^3/uL (0.0-0.8); Eosinophils % 2.2 %; Hematocrit 42.8 % (37.0-47.0); Hemoglobin 13.4 g/dL (11.5-15.3); Lymphocytes # 2.1 10^3/uL (0.8-4.8); Lymphocytes % 20.4 %; Mean Corpuscular HGB Conc 31.3 g/dL (30.0-36.0); Mean Corpuscular Volume 86.1 fl (81-99); Mean Platelet Volume 9.5 fL (7.4-10.4); Monocytes # 0.5 10^3/uL (0.2-0.9); Monocytes % 5.1 %; Neutrophils # 7.14 10^3/uL (1.8-7.7); Nucleated Red Blood Cells % 0 %; Platelet Count 318 10^3/cmm (130-400); Red Blood Count 4.97 10^6/uL (4.1-5.3); White Blood Count 10.1 10^3/uL (4.0-10.0)
[2021-01-08 10:01] LABS: Ferritin 230 ng/mL (15-150); Iron 93 ug/dL (37-145); Percent Saturation 32.4 % (20-50); Total Iron Binding Capacity 287 mcg/dl; Unsaturated Iron Binding 194 ug/dL (112-347)
[2021-01-08] MEDS: iohexol 300 mg/mL 100 mL Btl IV (12:14)
== END 2021-01-08 08:33 | disposition home or self-care (01) ==
LOC: ONCMED 08:41
PROVIDERS: Internal Medicine Medical Oncology; PCP Family Medicine; Visit Provider Internal Medicine Hematology & Oncology
DX: D50.9 Iron deficiency anemia, unspecified (principal); D18.03 Hemangioma of intra-abdominal structures; K80.20 Calculus of gallbladder without cholecystitis without obstruction; R91.1 Solitary pulmonary nodule
CPT/HCPCS: 36415; 74160; 82728; 83540; 83550; 85025; Q9967

== ENCOUNTER 2021-01-09 06:49 | Outpatient (CLI) | payer MEDICAID, SELFPAY ==
--- NOTE | 2021-01-09 15:41 | ONC FU_ITS ---
Dr. Krishna Patient Follow-Up Note Patient: Jazmin Myers Unit #: [id number]: 1970 Dicatated By: Gunnar Krishna M.D.Date of Visit:Jan 09, 2021 Onc Med Follow-up/Prog Note Chief Complaint: Anemia. History of Present Illness: This is a 50 year-old woman with iron deficiency anemia. I had seen her initially in October 2015. She had been seen at the [facility] the preceding month with complaints of severe fatigue/exhaustion. She gave a history of being chronically anemic. Her CBC at that time did show that she was significantly anemic with hemoglobin 7.4 g and hematocrit 25.9%. The red cell indices were hypochromic/microcytic with MCV 62 and MCH 17. The white blood cell count was normal 9600. Platelet count was mildly elevated at 461,000. The serum iron was low at 14 mcg/dL with transferrin saturation 2.7%. As she had previously been intolerant of oral iron, she was given parenteral iron replacement with 2 infusions of Injectafer. She failed to return for follow-up. I had seen her again in February 2020 with recurrence of her anemia. Her laboratory studies from 02/14/2020 included CBC showing hemoglobin 8.6 g with hematocrit 30.8%. The red cell indices were hypochromic/microcytic with MCV 64 and MCH 17. The white blood cell count was 10,500 and the platelet count was 380,000. The serum iron studies showed low transferrin saturation at 4% and the ferritin was low at 4 ng/mL, consistent with iron deficiency. As she had a history of intolerance to oral iron she was given parenteral iron replacement with 2 infusions of Injectafer, which she tolerated well. At her follow-up visit in April 2020 she was still slightly anemic with transferrin saturation low at 16.7%, and she was given 1 additional infusion of Injectafer. Her repeat CBC on 06/09/2020 showed hemoglobin normal at 13.2 g. Her medical history is also significant for a hospital admission for bilateral pulmonary emboli in March 2015. She was treated with apixaban. Her other medical illnesses include hypertension, degenerative arthritis, fibromyalgia, chronic headache, and anxiety/depression. She also has been followed for a cavernous hemangioma of the liver. She has a history of smoking 1/2 pack of cigarettes daily. INTERIM HISTORY: Her repeat CT abdomen/pelvis in February 2020 had shown marked enlargement of the lobulated enhancing mass in left hepatic lobe, at that point measuring 12.2 x 11.4 x 12.6 cm. With that finding, she was referred to Dr. Davenport in [place] for further management of the cavernous hemangioma. There was delay in getting that scheduled due to insurance issues. She eventually was seen by him on 07/09/2020. She was recommended to have a liver protocol CT at a 3-month interval. She was seen here for a follow-up visit on 12/04/2020. At that point she was significantly more fatigued. Her hemoglobin had declined to 10.7 g. Her transferrin saturation was low at 5.4% with ferritin also low at 5 ng/mL, consistent with iron deficiency. She was given additional parenteral iron replacement with 2 infusions of Injectafer. During that time, a stool IFOB test was negative. Her repeat abdominal CT scan on 01/08/2021 showed slight increase in the liver mass measuring 12.5 x 13.2 x 10.4 cm. Overall, was noted to have slowly increased since 2005. Also noted was a new 4 mm nodule at the right lung base. Follow-up was recommended. She is seen for a follow-up visit. She has noted improvement in her energy following the parenteral iron infusions. In the meantime, though, she developed symptoms of bronchitis a couple of weeks ago, and she is just now getting over it. She is doing light work at home. ECOG score is 1. She says she is not hungry, that she does eat. She has not had fever. She does have hot flashes and sweating. She has not had sore mouth or throat. Her cough is getting better now. She does not complain of shortness of breath or chest pain. She does have some nausea, and she occasionally has gagging. Her acid reflux is adequately managed with medication. She has no complaints with bowel function. Bladder function remains adequate, though she does have some stress incontinence. She has been having a lot of back pain. She does not complain of headache. She has some orthostatic lightheadedness. She has pain in her left shoulder area and down her left arm and she also has numbness in the left arm. Medications: Effexor XR 1 Tablet (of 300 mg) Capsule SR 24 HR Oral daily, hydrOXYzine HCl 1 (50 mg) Tablet Oral four times a day PRN, Pantoprazole Sodium 1 Tablet (of 40 mg) Tablet, enteric coated Oral daily, Xanax 1 Tablet (of 0.5 mg) Oral t.i.d. Allergies: Prazosin HCl Vital Signs: Performed on Jan 09, 2021 10:19 Height - 62.00 in Weight - 246.2 lbs (LOW) BSA - 2.09 sq.m BMI - 45.03 (HIGH) Temperature - 97.6 F (LOW) Pulse - 101 /min (HIGH) Respiration - 18 /min BP - 158/99 mm(hg) (HIGH) O2 Sat - 97 % Pain - 0 Fatigue - 4 Physical Examination: Constitutional - She looks pretty good generally, Eyes - Sclerae nonicteric. Conjunctivae clear, ENMT - No lesions noted in the oral cavity, Hematologic/Lymphatic - No cervical, clavicular, or axillary adenopathy, Respiratory - Lungs are clear with good air movement bilaterally, Cardiovascular - Heart rhythm is regular. There is no murmur, gallop, or rub noted, Abdomen - Mildly distended. Liver is not enlarged. Spleen is not palpable. There is no abdominal mass or ascites noted and there is no inguinal adenopathy, Extremities - No edema, Neurologic - No focal neurologic deficits noted. Lab/Imaging: Test performed on Jan 08, 2021 09:15 Ferritin 230 ng/mL Iron 93 mcg/dL Iron Binding Capacity (TIBC) 287 mcg/dl % Iron Saturation 32.4 % UIBC 194 mcg/dL WBC 10.1 10 3/uL RBC 4.97 10 6/uL HGB 13.4 g/dL HCT 42.8 % MCV 86.1 fl MCH 27.0 pg MCHC 31.3 g/dL RDW 26.0 % Platelet Count 318 10 3/cmm MPV 9.5 fL Neutrophils 7.14 10 3/uL Lymphocytes 2.1 10 3/uL Monocytes 0.5 10 3/uL Eosinophils 0.2 10 3/uL Basophils 0.1 10 3/uL Neutrophil % 71.0 % Lymphocyte % 20.4 % Monocyte % 5.1 % Eosinophil % 2.2 % Basophils % 0.9 % NRBC % 0 % Problem List: 1. Iron deficiency anemia. 2. She is being followed for suspected cavernous hemangioma of the liver. 3. She has a history of hypertension, currently not requiring medication. 4. She has a history of bilateral pulmonary emboli, currently not on anticoagulation. 5. GERD. 6. Degenerative arthritis and fibromyalgia. 7. Anxiety/depression. Problems Addressed with this Encounter and Plan: 1. Patient with recurrent iron deficiency anemia. It is uncertain to what extent this may be due to blood loss (GI or menstrual) versus inadequate oral iron absorption. Due to history of intolerance to oral iron, she was given parenteral iron replacement with 2 infusions of Injectafer, which she tolerated well. She had a good objective response, but she did require 1 additional infusion of Injectafer in April. Her CBC on 06/09/2020 showed normal hemoglobin at 13.2 g. At her follow-up visit on 12/04/2020 her hemoglobin had decreased to 10.7 g with transferrin saturation 5.4% and ferritin 5 ng/mL, consistent with iron deficiency. She was given additional parenteral iron replacement with 2 infusions of Injectafer. She has had a good clinical response. In the meantime, her iFOB test was negative. She will be scheduled for repeat CBC and iron studies in 3 months. I will see her again in 6 months, or sooner as needed. 2. She has been followed for suspected cavernous hemangioma of the liver. Her repeat CT abdomen on 01/08/2021 showed gradual enlargement of liver mass since 2005. The CT report and disc will be forwarded to Dr. Davenport. Signed By: Gunnar Krishna M.D. <<Signature on File>>
== END 2021-01-09 06:50 | disposition home or self-care (01) ==
PROVIDERS: PCP Family Medicine; Visit Provider Internal Medicine Medical Oncology
DX: D50.9 Iron deficiency anemia, unspecified (principal); R16.0 Hepatomegaly, not elsewhere classified; I10 Essential (primary) hypertension; K21.9 Gastro-esophageal reflux disease without esophagitis; M79.7 Fibromyalgia; F41.9 Anxiety disorder, unspecified; F32.A Depression, unspecified; M19.90 Unspecified osteoarthritis, unspecified site
CPT/HCPCS: 99214

== ENCOUNTER 2021-07-02 14:35 | Outpatient (CLI) | payer BC, MEDICAID, SELFPAY ==
--- NOTE | 2021-07-02 14:39 | MM_ITS ---
WS: [id number] VIEWS: MLO and CC views both breasts. 3D digital tomosynthesis is also included in this exam. Comparison made with prior exam of 09/01/2016. Findings: There was no sign of mass, architectural distortion or suspicious calcification in either breast. Sc attered fibroglandular densities MM/[place] [id number] Impression: BI-RADS: 2-Benign FOLLOW-UP: 1 Year Follow-up This mammogram was also analyzed by the Computer Aided Detection System R2 Imag [employer].
== END 2021-07-02 14:36 | disposition home or self-care (01) ==
LOC: RAD 14:37
PROVIDERS: PCP Family Medicine; Visit Provider Family Medicine
DX: Z12.31 Encounter for screening mammogram for malignant neoplasm of breast (principal)
CPT/HCPCS: 77063; 77067

== ENCOUNTER → 2021-07-03 11:11 | Outpatient (BNVA) | payer BC, MEDICAID, SELFPAY | PROVIDERS: PCP Family Medicine; Visit Provider Psychiatry & Neurology Psychiatry | DX: F40.10 Social phobia, unspecified (principal); F43.12 Post-traumatic stress disorder, chronic; F41.1 Generalized anxiety disorder; F33.2 Major depressive disorder, recurrent severe without psychotic features; F17.200 Nicotine dependence, unspecified, uncomplicated | CPT/HCPCS: 99214 ==

== ENCOUNTER 2021-10-07 13:17 | Oncology outpatient (recurring) (ONCR) | payer BC, MEDICAID, SELFPAY ==
[2021-10-07 15:02] LABS: Basophils # 0.1 10^3/uL (0.0-0.1); Basophils % 0.8 %; Eosinophils # 0.2 10^3/uL (0.0-0.8); Eosinophils % 1.9 %; Hemoglobin 12.3 g/dL (11.5-15.3); Lymphocytes # 3.3 10^3/uL (0.8-4.8); Lymphocytes % 29.6 %; Mean Corpuscular HGB Conc 30.8 g/dL (30.0-36.0); Mean Corpuscular Hemoglobin 25.2 pg (28.0-34.0); Mean Platelet Volume 9.6 fL (7.4-10.4); Monocytes # 0.6 10^3/uL (0.2-0.9); Monocytes % 5.6 %; Neutrophils % 61.9 %; Nucleated Red Blood Cells % 0 %; Platelet Count 336 10^3/cmm (130-400); Red Blood Count 4.88 10^6/uL (4.1-5.3); Red Cell Distribution Width 18.3 % (12.1-15.1)
[2021-10-07 15:30] LABS: Alanine Aminotransferase 12 U/L (0-33); Albumin Level 4.1 g/dL (3.5-5.2); Alkaline Phosphatase 86 U/L (35-105); Anion Gap 17.5 (5-19); Aspartate Amino Transferase 14 U/L (0-32); Blood Urea Nitrogen 7 mg/dL (6-20); Calcium 8.8 mg/dL (8.5-10.5); Carbon Dioxide 22 mmol/L (22-29); Chloride 102 mmol/L (98-107); Ferritin 9 ng/mL (15-150); Globulin 2.9 g/dL (1.3-4.6); Glomerular Filtration Rate 87.9 mL/min (90-130); Glucose 184 mg/dL (65-115); Iron 22 ug/dL (37-145); Osmolality Calculated 287 mOsm/kg (285-295); Percent Saturation 6.1 % (20-50); Potassium 4.5 mmol/L (3.5-5.1); Sodium 137 mmol/L (136-145); Total Bilirubin 0.2 mg/dL (0.15-1.2); Total Iron Binding Capacity 357 mcg/dl; Unsaturated Iron Binding 335 ug/dL (112-347)
== END 2021-10-07 23:59 | disposition home or self-care (01) ==
PROVIDERS: PCP Family Medicine; Visit Provider Internal Medicine Medical Oncology
DX: D50.9 Iron deficiency anemia, unspecified (principal); D18.03 Hemangioma of intra-abdominal structures; F41.9 Anxiety disorder, unspecified; F32.A Depression, unspecified; Z79.899 Other long term (current) drug therapy
CPT/HCPCS: 80053; 82728; 83540; 83550; 85025

== ENCOUNTER 2021-10-30 09:11 | Oncology outpatient (recurring) (ONCR) | payer BC, MEDICAID, SELFPAY ==
[2021-10-30] MEDS: ferric carboxy (IVPB) 750 MG in sodium chloride 0.9% (100 ml) 100 ML 345 MG IV (09:32)
[2021-10-30 10:08] VITALS: BP 148/88; PULSE 77; RESP 18; TEMP 36.3; O2SAT 95
== END 2021-11-06 23:59 | disposition home or self-care (01) ==
PROVIDERS: PCP Family Medicine; Visit Provider Internal Medicine Medical Oncology
DX: D50.9 Iron deficiency anemia, unspecified (principal)
CPT/HCPCS: 96365; J1439

== ENCOUNTER 2021-11-27 11:36 | Outpatient (CLI) | payer BC, MEDICAID, SELFPAY ==
[2021-11-27] MEDS: iohexol 350 mg/mL 100 mL Btl IV (12:32)
--- NOTE | 2021-11-27 13:00 | CT_ITS ---
WS: [id number] CT ABDOMEN WITH AND WITHOUT CONTRAST HISTORY: Evaluate liver. Follow-up mass. Triple phase 5 mm axial imaging performed to the abdomen. Oral contrast has not been provided. Ayon l and sagittal reformats are submitted. All CT scans at [facility] use at least one of these dose optimization techniques: automated exposure control; mA and/or kV adjustment per patient size (i ncludes targeted exams where dose is matched to clinical indication); or iterative reconstruction. CONTRAST: Omnipaque 350; 95 mL IV. DLP: 3280.73 mGy.cm COMPARISON: 01/08/2021, 02/27/2020, 05/31/2005 Lower thorax: No change in the noncalcified 4 mm nodule at the RIGHT lung base. Benign granuloma LEFT lung base. Heart is normal size. No pericardial effusion. Small hiatal hernia. Liver: Large lobulated soft tissue mass with variable density centered in the LEFT lobe of the liver with mass effect upon the RIGHT lobe of the liver. Mass measures 13.7 cm transversely by 11.5 cm ante rior posterior and extends over a length of 11.9 cm. There is also mass effect upon the transverse co sarbjit and the duodenum and gallbladder. Lobulated mass with central scar. Peripheral and also some cent ral pooling and puddling of contrast follows the blood pool enhancement within the aorta. This is con sistent with a very large cavernous giant hemangioma. No active or recent hemorrhage is identified. M ass has slowly increased in size since 2005. Gallbladder: Gallbladder is deformed by the large liver mass. Cholelithiasis. No adjacent inflammatio n. Pancreas: Mild displacement to the LEFT by the hemangioma. Spleen: Granulomata. Normal size. Adrenals: Normal. Right kidney: Normal. Left kidney: Nonobstructing 7 mm calcification. Parapelvic cysts in the central pelvis. Aorta: Mild atherosclerotic changes. GI tract: Nondistended stomach with no wall thickening. Duodenum is being displaced by the large live r mass. No adenopathy or free fluid. Abdominal wall: No hernia. Visualized osseous structures: Unremarkable. CT/CT abdomen wo/w con [id number] IMPRESSION: 1. Long-term stability of a large mass in the LEFT lobe of the liver with feat ures most consistent with a large cavernous giant hemangioma. Slowly increased in size since 2005 but not significantly changed since 01/08/2021. Mass measures 13.7 x 11.5 x 11.9 cm. Due to the large size mass is at risk for significant h emorrhage. 2. Cholelithiasis. 3. Large liver mass is causing compression of the adjacent surrounding structu res including the liver, gallbladder, duodenum and pancreatic head. 4. Stable 4 mm noncalcified RIGHT lower lobe pulmonary nodule.
== END 2021-11-27 11:37 | disposition home or self-care (01) ==
LOC: RAD 11:40
PROVIDERS: PCP Family Medicine; Visit Provider Internal Medicine Medical Oncology
DX: D18.03 Hemangioma of intra-abdominal structures (principal); K80.20 Calculus of gallbladder without cholecystitis without obstruction; R16.0 Hepatomegaly, not elsewhere classified; R91.1 Solitary pulmonary nodule
CPT/HCPCS: 74170

== ENCOUNTER → 2022-03-09 15:29 | Outpatient (BNVA) | payer BC, SELFPAY | PROVIDERS: PCP Family Medicine Adult Medicine; Visit Provider Family Medicine Adult Medicine | DX: R39.9 Unspecified symptoms and signs involving the genitourinary system (principal); N30.91 Cystitis, unspecified with hematuria | CPT/HCPCS: 81000 ==

== ENCOUNTER → 2022-03-30 16:18 | Outpatient (BNVA) | payer BC, SELFPAY | PROVIDERS: PCP Family Medicine Adult Medicine; Visit Provider Nurse Practitioner Psychiatric/Mental Health | DX: Z79.899 Other long term (current) drug therapy (principal) | CPT/HCPCS: 80053; 80061; 83036 ==

== ENCOUNTER 2022-04-01 12:16 | Oncology outpatient (recurring) (ONCR) | payer BC, SELFPAY ==
[2022-04-01 12:47] LABS: Basophils # 0.1 10^3/uL (0.0-0.1); Basophils % 0.7 %; Eosinophils # 0.2 10^3/uL (0.0-0.8); Eosinophils % 2.5 %; Hematocrit 43.6 % (37.0-47.0); Hemoglobin 14.4 g/dL (11.5-15.3); Lymphocytes # 2.8 10^3/uL (0.8-4.8); Lymphocytes % 33.6 %; Mean Corpuscular Hemoglobin 30.9 pg (28.0-34.0); Mean Corpuscular Volume 93.6 fl (81-99); Mean Platelet Volume 9.7 fL (7.4-10.4); Monocytes # 0.7 10^3/uL (0.2-0.9); Monocytes % 8.6 %; Neutrophils # 4.49 10^3/uL (1.8-7.7); Neutrophils % 54.2 %; Nucleated Red Blood Cells % 0 %; Platelet Count 248 10^3/cmm (130-400); Red Blood Count 4.66 10^6/uL (4.1-5.3); Red Cell Distribution Width 13.8 % (12.1-15.1); White Blood Count 8.3 10^3/uL (4.0-10.0)
[2022-04-01 13:06] LABS: Alanine Aminotransferase 18 U/L (0-33); Albumin Level 3.9 g/dL (3.5-5.2); Alkaline Phosphatase 65 U/L (35-105); Aspartate Amino Transferase 15 U/L (0-32); Blood Urea Nitrogen 11 mg/dL (6-20); Calcium 9.3 mg/dL (8.5-10.5); Carbon Dioxide 22 mmol/L (22-29); Chloride 103 mmol/L (98-107); Ferritin 97 ng/mL (15-150); Glucose 120 mg/dL (65-115); Iron 97 ug/dL (37-145); Osmolality Calculated 285 mOsm/kg (285-295); Percent Saturation 34.8 % (20-50); Sodium 137 mmol/L (136-145); Total Bilirubin 0.2 mg/dL (0.15-1.2); Total Iron Binding Capacity 278 mcg/dl; Total Protein 6.9 g/dL (6.6-8.7); Unsaturated Iron Binding 181 ug/dL (112-347)
== END 2022-04-06 23:59 | disposition home or self-care (01) ==
LOC: ONCMED 12:16
PROVIDERS: PCP Family Medicine Adult Medicine; Visit Provider Internal Medicine Medical Oncology
DX: D50.9 Iron deficiency anemia, unspecified (principal); D18.03 Hemangioma of intra-abdominal structures; F17.210 Nicotine dependence, cigarettes, uncomplicated; Z79.899 Other long term (current) drug therapy
CPT/HCPCS: 36415; 80053; 82728; 83540; 83550; 85025; 99214

== ENCOUNTER → 2022-07-20 14:08 | Outpatient (BNVA) | payer MEDICAID, SELFPAY | PROVIDERS: PCP Family Medicine Adult Medicine; Visit Provider Family Medicine Adult Medicine | DX: M19.012 Primary osteoarthritis, left shoulder (principal); G89.29 Other chronic pain | CPT/HCPCS: 73030 ==

== ENCOUNTER → 2022-08-16 14:47 | Outpatient (BNVA) | payer MEDICAID, SELFPAY | PROVIDERS: PCP Family Medicine Adult Medicine; Referring Provider Family Medicine Adult Medicine; Visit Provider Student in an Organized Health Care Education/Training Program | DX: G56.02 Carpal tunnel syndrome, left upper limb (principal); M15.9 Polyosteoarthritis, unspecified; M25.512 Pain in left shoulder; G89.29 Other chronic pain; M65.4 Radial styloid tenosynovitis [de Quervain]; M75.42 Impingement syndrome of left shoulder | CPT/HCPCS: 73130 ==

== ENCOUNTER → 2023-08-23 17:51 | Outpatient (BNVA) | payer MEDICAID, SELFPAY | PROVIDERS: PCP Family Medicine Adult Medicine; Visit Provider Nurse Practitioner | DX: R30.0 Dysuria (principal) | CPT/HCPCS: 81000 ==

== ENCOUNTER → 2024-02-28 11:22 | Outpatient (BNVA) | payer MEDICAID, SELFPAY | PROVIDERS: PCP Family Medicine Adult Medicine; Visit Provider Family Medicine | DX: F17.210 Nicotine dependence, cigarettes, uncomplicated (principal); Z12.2 Encounter for screening for malignant neoplasm of respiratory organs; R53.83 Other fatigue; G25.81 Restless legs syndrome; M15.9 Polyosteoarthritis, unspecified; F34.1 Dysthymic disorder; F25.1 Schizoaffective disorder, depressive type; F43.12 Post-traumatic stress disorder, chronic; F41.1 Generalized anxiety disorder; R73.01 Impaired fasting glucose; K21.9 Gastro-esophageal reflux disease without esophagitis; Z76.89 Persons encountering health services in other specified circumstances | CPT/HCPCS: 80053; 82306; 82607; 83036; 84443; 85025 ==

== ENCOUNTER 2024-03-07 15:10 | Outpatient (CLI) | payer MEDICAID, SELFPAY ==
--- NOTE | 2024-03-07 15:15 | CT_ITS ---
WS: [id number] LDCT LUNG CANCER SCREENING TECHNIQUE: Noncontrast CT of the chest with coronal and sagittal reformatted images. CLINICAL INFORMATION: smoker, 36pk yr hx; screening DLP: 142.91 mGy.cm DIvol: Mean CTDIvol: 3.50 (mGy) All CT scans at [facility] use at least one of these dose optimization techniques: automat ed exposure control; mA and/or kV adjustment per patient size (includes targeted exams where dose is matched to clinical indication); or iterative reconstruction. FINDINGS: 6 mm noncalcified nodule RIGHT upper lobe. 3 mm noncalcified nodule RIGHT lower lobe. Calci fied granulomas LEFT lower lobe. Normal caliber thoracic aorta for aortic calcification. Coronary calcification. No axillary lymphaden opathy. No mediastinal or hilar lymphadenopathy. Hepatomegaly. Diffuse fatty infiltration of the live r. Adrenal glands are normal. Normal GE junction. Mild thoracic curve. Mild thoracic kyphosis hypertr ophic changes thoracic spine. Partially evaluated is the apex of the previously described large liver mass. As previously described this was thought to represent giant cavernous hemangioma. This is at risk for hemorrhage as discusse d in the prior report. Recommend continued surveillance with contrast-enhanced CT abdomen pelvis. Las t exam at [facility] was 11/27/2021 CT/CT lung screening [id number] IMPRESSION: Recommend continued surveillance of the partially visualized liver mass described above with contrast-enhanced CT abdomen pelvis LUNG-RADS: 2S-Benign Appearance or Behavior with Significant Findings FOLLOW UP: 12 Month: Continue annual screening with LDCT
== END 2024-03-07 15:11 | disposition home or self-care (01) ==
LOC: RAD 15:12
PROVIDERS: PCP Family Medicine; Visit Provider Family Medicine
DX: Z12.2 Encounter for screening for malignant neoplasm of respiratory organs (principal); F17.210 Nicotine dependence, cigarettes, uncomplicated; R91.8 Other nonspecific abnormal finding of lung field; J98.4 Other disorders of lung; I25.10 Atherosclerotic heart disease of native coronary artery without angina pectoris; R16.0 Hepatomegaly, not elsewhere classified; K76.0 Fatty (change of) liver, not elsewhere classified; M43.8X4 Other specified deforming dorsopathies, thoracic region; M40.294 Other kyphosis, thoracic region; R93.5 Abnormal findings on diagnostic imaging of other abdominal regions, including retroperitoneum
CPT/HCPCS: 71271

== ENCOUNTER 2024-03-29 13:19 | Outpatient (CLI) | payer MEDICAID, SELFPAY ==
--- NOTE | 2024-03-29 13:30 | CT_ITS ---
WS: [id number] CT ABDOMEN AND PELVIS WITH CONTRAST HISTORY: liver mass on LDCT; prior CTs show large cavernous hemangioma TECHNIQUE: Imaging performed of the abdomen and pelvis with IV contrast. Multiphase imaging of the abdomen. Coronal and sagittal reformats are submitted. All CT scans at [facility] use at least one of these dose optimization techniques: automated exposure control; mA and/or kV adjustment per patient size (includes targeted exams where dose is matched to clinical indication); or iterative reconstruction. IV CONTRAST: Omnipaque 350; 100 mL IV. Oral contrast: No DLP: 2491.19 mGy.cm COMPARISON: 02/27/2020, 11/27/2021 Lower thorax: 3 mm nodule at the RIGHT lung base is stable. Benign granuloma LEFT lung base. Heart is normal size. No hiatal hernia. Liver/biliary system: Marked hepatomegaly. Low-attenuation from hepatic steatosis throughout the entire liver. Reidentified is a very large lobulated mass with peripheral nodular enhancement centered in the LEFT lobe of the liver. Mass measures 15.9 x 13.3 x 10.5 cm and is slowly increased in size over multiple prior examinations. Not significantly changed since the most recent study of 11/27/2021. There is a central scar which does not enhance. There is partial filling in of this lesion on the the delayed imaging but incomplete which is not atypical for a large mass of this size. This is likely hemangioma. There is mass effect upon the remy hepatis and gallbladder. Surface nodule along the RIGHT hepatic capsule was present in 2021 measuring 0.8 cm with no progression. Gallbladder: Contracted and slightly displaced by the large mass in the LEFT lobe. Pancreas: Normal size pancreas and pancreatic duct. No adjacent inflammation. Spleen: Normal size pancreas with granuloma. Adrenal glands: Normal. Right kidney: Normal. Left kidney: Normal size kidney. Small parapelvic cysts. Aorta: Mild atherosclerosis with no aneurysm. Lymphadenopathy: None. Free fluid: None. GI tract: No GI tract obstruction. No colitis. Normal appendix. Abdominal wall: Fat containing umbilical hernia. Pelvis: No free fluid or adenopathy within the pelvis. Uterus is midline and normal size. Several small follicles in the RIGHT ovary with the largest measuring 2.2 cm. Bones: Unremarkable. CT/CT abdomen pelvis w con* [id number] IMPRESSION: 1. Stable large LEFT hepatic lobe mass measuring 15.9 x 13.3 x 10.5 cm. Simila r size as compared to the most recent study of 11/27/2021. Most consistent with a giant cavernous hemangioma. 2. Diffuse hepatic steatosis. 3. No GI tract obstruction. 4. No renal obstruction.
[2024-03-29] MEDS: iohexol 350 mg/mL 500 mL Btl (per mL) IV (13:45)
== END 2024-03-29 13:20 | disposition home or self-care (01) ==
PROVIDERS: PCP Family Medicine; Visit Provider Family Medicine
DX: R16.0 Hepatomegaly, not elsewhere classified (principal); K76.0 Fatty (change of) liver, not elsewhere classified; R91.1 Solitary pulmonary nodule; J84.10 Pulmonary fibrosis, unspecified; R93.2 Abnormal findings on diagnostic imaging of liver and biliary tract; R93.3 Abnormal findings on diagnostic imaging of other parts of digestive tract; K86.89 Other specified diseases of pancreas; N28.1 Cyst of kidney, acquired; I70.0 Atherosclerosis of aorta; K42.9 Umbilical hernia without obstruction or gangrene; R93.89 Abnormal findings on diagnostic imaging of other specified body structures
CPT/HCPCS: 74177

== ENCOUNTER → 2024-04-10 12:24 | Outpatient (BNVA) | payer MEDICAID, SELFPAY | PROVIDERS: PCP Family Medicine; Visit Provider Family Medicine | DX: E11.9 Type 2 diabetes mellitus without complications (principal) | CPT/HCPCS: 80061; 82043 ==

== ENCOUNTER → 2024-07-24 09:26 | Outpatient (BNVA) | payer MEDICAID, SELFPAY | PROVIDERS: PCP Family Medicine; Visit Provider Family Medicine | DX: I10 Essential (primary) hypertension (principal); E11.65 Type 2 diabetes mellitus with hyperglycemia; E55.9 Vitamin D deficiency, unspecified; E78.2 Mixed hyperlipidemia; E11.9 Type 2 diabetes mellitus without complications | CPT/HCPCS: 80053; 80061; 82043; 82306; 83036 ==

== ENCOUNTER 2024-07-27 14:10 | Outpatient (CLI) | payer MEDICAID, SELFPAY ==
--- NOTE | 2024-07-27 14:20 | MM_ITS ---
WS: [id number] BILATERAL 3D TOMOSYNTHESIS DIGITAL SCREENING MAMMOGRAPHY WITH CAD CLINICAL INFORMATION: screening HISTORY: Screening mammogram. No current complaints. COMPARISON: 2021 TECHNIQUE: Bilateral CC and MLO views. FINDINGS: Scattered fibroglandular densities bilaterally. No suspicious focal mass, asymmetry, calcifications, or architectural distortion. No evidence of malignancy. Few incidental punctate and lucent centered calcifications. MM/MM scr tomosynthesis [id number] IMPRESSION: DENSITY: There are scattered areas of fibroglandular density. BI-RADS: 2 - Benign. FOLLOW UP: 1 Year Follow-up Recommend return to annual screening mammography.
== END 2024-07-27 14:11 | disposition home or self-care (01) ==
LOC: RAD 14:12
PROVIDERS: PCP Family Medicine; Visit Provider Family Medicine
DX: Z12.31 Encounter for screening mammogram for malignant neoplasm of breast (principal)
CPT/HCPCS: 77063; 77067

== ENCOUNTER → 2024-09-28 14:45 | Outpatient (BNVA) | payer MEDICAID, SELFPAY | PROVIDERS: PCP Family Medicine; Visit Provider Family Medicine | DX: Z12.4 Encounter for screening for malignant neoplasm of cervix (principal) | CPT/HCPCS: 87624 ==

== ENCOUNTER → 2024-10-26 13:44 | Outpatient (BNVA) | payer MEDICAID, SELFPAY | PROVIDERS: PCP Family Medicine; Visit Provider Family Medicine | DX: E11.65 Type 2 diabetes mellitus with hyperglycemia (principal) | CPT/HCPCS: 83036 ==